=== PATIENT | male | born 1975 | race Caucasian/White ===

== ENCOUNTER → 2016-09-18 | Outpatient (CLI) | payer OTHER, SELFPAY ==
[~2016-09-18] MED LIST: ATARAX PO; CERTAGEN PO; CLARITIN10 M3 PO; COLACE PO; DEPAKOTE PO; EFFEXOR PO; FAMOTIDINE PO; LOPID600 MG PO; LORAZEPAM1 MG PO; LUNESTA PO; RISPERIDONE PO; RITALIN SR20 MG PO; RITALIN10 MG PO; SEROQUEL PO; TOPAMAX PO; ZANTAC PO; ZONEGRAN100 MG PO
--- NOTE | ~2016-09-18 | US6 ---
[facility] A Service of [facility] RADIOLOGY TEXT RESULTS PATIENT: ALKA CAST JR LOCATION: [facility] : 79 UNIT #: [id number] AGE: [address]: Nick Moses MD SEX: M ORDER DR: [id number] [place] [id number] [facility]. [place], [place] [address] [id number] O MR#: [id number] Acc #: [id number] NAME: ALKA CAST : 1975 SEX: M STUDY DATE/TIME: 09/18/2016 10:32 UNIT: [facility] ROOM: STUDY DESCRIPTION: US Abdominal Limited Attending Physician: Nick Moses M.D. Referring Physician: Nick Moses M.D. Ordering Physician: Nick Moses M.D. Primary Care Physician: Nick Moses M.D. MEDICAL IMAGING REPORT This report is preliminary unless electronic signature is present EXAM Right upper quadrant ultrasound INDICATION Right upper quadrant pain for a few weeks. TECHNIQUE Marcial-scale and color Doppler sonographic images were obtained through the right upper quadrant. FINDINGS Pancreas cannot be seen due to overlying bowel gas. There is also essentially non-diagnostic images of the liver due to both overlying bowel gas and the patient's body habitus. Gallbladder does not contain any stones or sludge and there is no hydronephrosis. Patient's liver is suspected to be enlarged at 17.2 cm in craniocaudal dimensions. Right kidney is normal in appearance with no solid or cystic renal masses seen and no hydronephrosis identified. IMPRESSION 1. This study is non-diagnostic for evaluation of the liver, pancreas. If there is concern for pathology involving these organs, I would suggest further evaluation with contrast-enhanced CT or MRI. Of note, the patient is suspected to have hepatic steatosis and hepatomegaly but again, any further assessment is limited due to patient's body habitus and overlying bowel gas. 2. The gallbladder and right kidney appear normal. Dictated by... Ivonne Abernathy M.D. THIS IS AN ELECTRONICALLY VERIFIED REPORT [facility]. [facility] A Service of [facility] & [facility] RADIOLOGY TEXT RESULTS PATIENT: ALKA CAST JR LOCATION: [facility] : 79 UNIT #: [id number] AGE: [address]: Nick Moses MD SEX: M ORDER DR: Ivonne Abernathy M.D. at 09/18/2016 4:40 PM AFF/aa TD: 09/18/2016 15:17 JOB #: [id number] MEDICAL IMAGING REPORT COPY
== END | disposition home or self-care (01) ==
LOC: CGUS 09:59
DX: R74.8 Abnormal levels of other serum enzymes (principal)
CPT/HCPCS: 76705

== ENCOUNTER → 2016-10-06 | Outpatient (CLI) | payer OTHER ==
--- NOTE | ~2016-10-06 | CT2 ---
[facility] A Service of [facility] RADIOLOGY TEXT RESULTS PATIENT: ALKA CAST JR LOCATION: [facility] : 77 UNIT #: [id number] AGE: [address]: Nick Moses MD SEX: M ORDER DR: [id number] [place] [id number] [facility]. [place], [place] [address] [id number] O MR#: [id number] Acc #: [id number] NAME: ALKA CAST : 1975 SEX: M STUDY DATE/TIME: 10/06/2016 10:25 UNIT: [facility] ROOM: STUDY DESCRIPTION: CT Abd and Pelv W Cont Attending Physician: Nick Moses M.D. Referring Physician: Nick Moses M.D. Ordering Physician: Nick Moses M.D. Primary Care Physician: Nick Moses M.D. MEDICAL IMAGING REPORT This report is preliminary unless electronic signature is present EXAM CT abdomen and pelvis with contrast INDICATIONS Generalized and right upper quadrant abdominal pain off and on for the past 2 weeks with elevated liver enzyme levels. PROCEDURE Contrast-enhanced CT of the abdomen and pelvis. This CT exam was performed with one or more of the following radiation dose reduction techniques: automatic exposure control, adjustment of mA and/or kV according to patient size, and iterative reconstruction. COMPARISON None FINDINGS Abdomen with contrast: Included lung bases are clear. The liver has normal morphology and size. There is low-attenuation of the liver compared with the spleen which is nonspecific on contrast-enhanced CT. No liver or splenic mass. Kidneys, adrenal glands, pancreas, gallbladder unremarkable. Moderate colonic stool burden. Appendix is normal. Pelvis with contrast: No pelvic mass or fluid. No aggressive appearing bone lesion. IMPRESSION 1. No acute findings. 2. Possible hepatic steatosis. Liver otherwise has normal size and morphology. [facility] A Service of [facility] & [facility] RADIOLOGY TEXT RESULTS PATIENT: ALKA CAST JR LOCATION: [facility] : 77 UNIT #: [id number] AGE: [address]: Nick Moses MD SEX: M ORDER DR: Dictated by... Jorge Luis Koenig M.D. THIS IS AN ELECTRONICALLY VERIFIED REPORT Jorge Luis Koenig M.D. at 10/07/2016 7:05 AM EED/to TD: 10/06/2016 13:35 JOB #: [id number] MEDICAL IMAGING REPORT Page 1 of 1 COPY
[2016-10-06 09:25] LABS: POC - CREATININE 1.52 mg/dL (0.64-1.27)
== END | disposition home or self-care (01) ==
LOC: CCAT 08:31
PROVIDERS: Internal Medicine
DX: R10.9 Unspecified abdominal pain (principal); R74.0 Nonspecific elevation of levels of transaminase and lactic acid dehydrogenase [LDH]
CPT/HCPCS: 74177; 82565; Q9967